=== PATIENT | male | born 1990 | race Caucasian/White ===

== ENCOUNTER 2017-08-18 00:57 | Emergency (ER) | payer BC, OTHER ==
[2017-08-18 01:17] VITALS: BP 139/84
[2017-08-18] MEDS ORDERED: cefTRIAXone SODIUM 1 GM VIAL IM ONE (01:30)
--- NOTE | 2017-08-18 01:34 | ED.PDOC ---
History of Present Illness - General Chief Complaint: Dental/Mouth Stated Complaint: tooth pains Time Seen by Provider: 08/18/17 01:23 Source: patient Exam Limitations: no limitations Additional Information: C/O SWELLING TO L LOWER MANDIBLE AREA. HAD SEVERAL TEETH PULLED 7 DAYS AGO. OTHER EXTRACTION SITES ARE OK BUT THIS AM PT NOTICED SWELLING TO MANDIBLE. ATTEMPTED TO GET IN TOUCH WITH DENTIST HOWEVER THEY WERE CLOSED. - History of Present Illness Timing/Duration: abrupt, this morning Severity: moderate EENT Location: facial Improving Factors: nothing Worsening Factors: nothing Allergies/Adverse Reactions: Allergies NO KNOWN ALLERGY Allergy (Verified 08/18/17 01:09) Home Medications: Ambulatory Orders Amoxicillin [Amoxil] 500 mg PO TID #30 cap 08/18/17 Review of Systems - Review of Systems Constitutional: Denies: chills, fever EENTM: States: mouth pain, mouth swelling. Denies: ear pain Respiratory: Denies: cough, short of breath Cardiology: Denies: chest pain, palpitations Gastrointestinal/Abdominal: Denies: nausea, vomiting Skin: Denies: rash Past Medical History (General) - Patient Medical History Hx Asthma: No Hx Cardiac Disorders: No Hx Diabetes: No Hx Gastroesophageal Reflux: No Surgical History: cholecystectomy, other - Vaccination History Hx Tetanus, Diphtheria Vaccination: No Hx Influenza Vaccination: No - Social History Hx Tobacco Use: Yes Hx Alcohol Use: Yes - seldom Family Medical History - Family History Mother Family History: Unknown Physical Exam - Physical Exam General Appearance: Alert, No apparent distress Eye Exam: bilateral normal Throat Exam: other - DENTAL SILVESTRE L LOWER MOLAR WITH SWELLING, OTHER EXTRACTION SITES CLEAN WITH MINIMAL SWELLING. Neck: full range of motion, supple, other - NO TM/MASSES. Cardiovascular/Respiratory: regular rate, rhythm, no M/R/G Abdominal Exam: non-tender, no organomegaly Skin Exam: normal color, warm/dry Departure - Departure Clinical Impression: Facial pain, Dental caries Time of Disposition: 01:37 Disposition: Discharge to Home or Self Care Condition: Good Departure Forms: ED Discharge - Pt. Copy, Patient Portal Self Enrollment Instructions: DI for Mouth Pain, DI for Dental Pain Prescriptions: Amoxicillin [Amoxil] 500 mg PO TID #30 cap Home Medications: Ambulatory Orders Amoxicillin [Amoxil] 500 mg PO TID #30 cap 08/18/17
[2017-08-18 01:52] VITALS: TEMP 98.8; O2SAT 99
== END 2017-08-18 01:52 | disposition home or self-care (01) ==
LOC: ER 00:57
DX: K02.9 Dental caries, unspecified (principal); R51 Headache; Z87.891 Personal history of nicotine dependence

== ENCOUNTER → 2017-12-19 | Outpatient (CLI) | payer OTHER | LOC: GMAE 18:47 | PROVIDERS: ATTEND Family Medicine | DX: Z00.00 Encounter for general adult medical examination without abnormal findings (principal) ==